=== PATIENT | male | born 1955 | race Caucasian/White ===

== ENCOUNTER 2023-11-23 14:53 | Emergency (ER) | payer BC, MEDICAID ==
[~2023-11-23] VITALS: Ht 167.6 cm; Wt 83.9 kg
[2023-11-23 15:01] VITALS: BP_SYST 145; PULSE 84; RESP 18; TEMP 96.9; O2SAT 100
[2023-11-23] MEDS: ASPIRIN 81 MG TAB.CHEW PO ONE (15:25)
[2023-11-23 15:35] LABS: BASOPHILS # (AUTO) 0.1 K/uL (0.0-0.2); BASOPHILS % (AUTO) 0.6 % (0.0-2.0); EOSINOPHILS # (AUTO) 0.2 K/uL (0.0-0.4); EOSINOPHILS % (AUTO) 1.9 % (0.0-4.0); HEMATOCRIT 42.7 % (36-54); HEMOGLOBIN 14.8 g/dL (14.0-18.0); LYMPHOCYTES # (AUTO) 2.6 K/uL (1.0-5.5); MEAN CORPUSCULAR HEMOGLOBIN 31 pg (27-31); MEAN CORPUSCULAR HGB CONC 35 % (32-36); MEAN CORPUSCULAR VOLUME 88 fL (79.0-98.0); MONOCYTES # (AUTO) 0.5 K/uL (0.0-1.0); MONOCYTES % (AUTO) 6.8 % (1.7-9.3); NEUTROPHILS # (AUTO) 4.5 K/uL (1.8-7.7); NEUTROPHILS % (AUTO) 57.7 % (40.0-70.0); PLATELET COUNT (AUTO) 193 K/uL (130-430); RED BLOOD CELL COUNT(AUTO) 4.85 MIL/uL (4.2-6.2); RED CELL DISTRIBUTION WIDTH 13.1 % (9.0-15.0); WHITE BLOOD COUNT (AUTO) 7.8 K/uL (4.8-10.8)
[2023-11-23 15:53] LABS: ANION GAP 8 (5-15); CALCIUM 8.5 mg/dL (8.4-11.0); CARBON DIOXIDE 25 mmol/L (23-29); CHLORIDE 106 mmol/L (98-107); CREATININE 0.93 mg/dL (0.55-1.30); FREE T4 (FREE THYROXINE) 1.1 ng/dl (0.8-1.5); GFR AFRICAN AMERICAN 103 mL/min (>90); GLUCOSE 144 mg/dL (74-106); SODIUM SERUM 139 mmol/L (136-145); THYROID STIMULATING HORMONE 2.03 uIu/mL (0.36-3.74); UREA NITROGEN, BLOOD 13 mg/dL (8-21)
[2023-11-23 15:58] LABS: GFR NON AFRICAN-AMERICAN 85 mL/min (>90)
[2023-11-23 18:45] VITALS: BP_SYST 138; PULSE 67; RESP 18; O2SAT 95
== END 2023-11-23 18:45 | disposition home or self-care (01) ==
LOC: SED 14:53
DX: I47.19 Other supraventricular tachycardia (principal); I49.8 Other specified cardiac arrhythmias; I10 Essential (primary) hypertension
CPT/HCPCS: 36415; 71045; 80048; 83735; 83880; 84439; 84443; 84484; 85025; 93005; 99285